=== PATIENT | male | born 1955 ===

== ENCOUNTER 2017-07-15 09:52 | Emergency (ER) | payer MEDICARE ==
[2017-07-15 09:56] VITALS: BP 150/92; O2SAT 98
[2017-07-15 09:57] VITALS: BMI 27.0
[2017-07-15 10:22] VITALS: PULSE 104; RESP 20; TEMP 98
--- NOTE | 2017-07-15 10:29 | ED PDOC ---
HPI: CCC, URI, Sore Throat Time Seen by Provider: 07/15/17 10:10 Chief Complaint (Nursing): Cough, Cold, Congestion Chief Complaint (Provider): Cough History Per: Patient History/Exam Limitations: no limitations Onset/Duration Of Symptoms: Days (x2) Current Symptoms Are (Timing): Still Present Associated Symptoms: Cough, Sputum (green) Additional Complaint(s): Jason Douglass, a 61 year old female, with a past medical history of cerebrovascular accident, hypertension and hypercholesterolemia presents to the ED complaining of cough productive of green sputum associated with body aches x2 days. Denies fever and shortness of breath. PMD: Dr. Carr Past Medical History Reviewed: Historical Data Vital Signs: Last Vital Signs Temp 98.0 F 07/15/17 10:17 Pulse 104 H 07/15/17 10:17 Resp 20 07/15/17 10:17 BP 150/92 H 07/15/17 10:17 Pulse Ox 98 07/15/17 10:33 - Medical History PMH: HTN, Hypercholesterolemia - Family History Family History: States: Unknown Family Hx - Social History Alcohol: None Drugs: Denies - Home Medications Home Medications: Ambulatory Orders Medication Instructions Recorded Azithromycin [Zithromax] 250 mg PO DAILY #6 tab 07/15/17 - Allergies Allergies/Adverse Reactions: Allergies Allergy/AdvReac Type Severity Reaction Status Date / Time No Known Allergies Allergy Verified 07/15/17 10:17 Review of Systems ROS Statement: Except As Marked, All Systems Reviewed And Found Negative Constitutional: Positive for: Other (body aches) Respiratory: Positive for: Cough (productive of green sputum) Physical Exam - Reviewed Nursing Documentation Reviewed: Yes Vital Signs Reviewed: Yes - Physical Exam Appears: Positive for: Non-toxic, No Acute Distress Head Exam: Positive for: ATRAUMATIC, NORMAL INSPECTION, NORMOCEPHALIC Skin: Positive for: Normal Color, Warm, Dry. Negative for: Rash Eye Exam: Positive for: Normal appearance, PERRL. Negative for: Nystagmus ENT: Negative for: Normal ENT Inspection (throat erythematous but no exudates), Nasal Congestion, Tonsillar Exudate, Tonsillar Swelling Neck: Positive for: Normal, Painless ROM, Supple Cardiovascular/Chest: Positive for: Regular Rate, Rhythm, Chest Non Tender. Negative for: Tachycardia Respiratory: Positive for: Normal Breath Sounds. Negative for: Rales, Rhonchi, Wheezing, Respiratory Distress Gastrointestinal/Abdominal: Positive for: Normal Exam, Bowel Sounds, Soft. Negative for: Tenderness, Mass, Guarding, Rebound Back: Positive for: Normal Inspection. Negative for: L CVA Tenderness, R CVA Tenderness Extremity: Positive for: Normal ROM, Tenderness. Negative for: Deformity, Swelling Neurologic/Psych: Positive for: Alert, Oriented, Gait, Other (left sided facial weakness). Negative for: Motor/Sensory Deficits - ECG O2 Sat by Pulse Oximetry: 98 (RA) Pulse Ox Interpretation: Normal Medical Decision Making Medical Decision Makin Initial Impression 61 y/o male presenting with cough Initial Plan: * Chest Xray * Influenza A B * Reevaluation Scribe Attestation Documented by Yumiko Means acting as a scribe for Toro Felipe MD. Provider Attestation All medical record entries made by the Scribe were at my direction and personally dictated by me. I have reviewed the chart and agree that the record accurately reflects my personal performance of the history, physical exam, medical decision making, and the department course for this patient. I have also personally directed, reviewed, and agree with the discharge instructions and disposition. Disposition - Clinical Impression Clinical Impression: Bronchitis - Patient ED Disposition Is Patient to be Admitted: No Counseled Patient/Family Regarding: Studies Performed, Diagnosis, Need For Followup, Rx Given - Disposition Referrals: [facility] [Outside] Disposition: Routine/Home Disposition Time: 10:56 Condition: FAIR Prescriptions: Azithromycin [Zithromax] 250 mg PO DAILY #6 tab Instructions: Acute Bronchitis (ED) Forms: [employer] (Hungarian) Print Language: [place] ISLANDER
--- NOTE | 2017-07-15 10:34 | RAD ---
HISTORY: cough COMPARISON: No prior. TECHNIQUE: Chest PA and lateral FINDINGS: LUNGS: On the lateral view there is a small patchy area of alveolar density identified overlying the lumbar spine region. This is probably noted in the retrocardiac region on the frontal view. Small pneumonia is not excluded. No other infiltrates are seen. PLEURA: No significant pleural effusion identified. No pneumothorax apparent. CARDIOVASCULAR: Normal. OSSEOUS STRUCTURES: No significant abnormalities. VISUALIZED UPPER ABDOMEN: Normal. OTHER FINDINGS: None. IMPRESSION: Possible small alveolar infiltrate posteriorly on the lateral radiograph, probably within the left lower lobe. No CHF.
== END 2017-07-15 11:20 | disposition home or self-care (01) ==
LOC: H.ER 09:52
DX: J40 Bronchitis, not specified as acute or chronic (principal); E78.00 Pure hypercholesterolemia, unspecified; I10 Essential (primary) hypertension

== ENCOUNTER 2017-12-29 11:29 | Emergency (ER) | payer MEDICARE ==
[2017-12-29 11:34] VITALS: BP 167/98; PULSE 59; RESP 17; TEMP 97.8; O2SAT 98; BMI 26.7
--- NOTE | 2017-12-29 12:38 | ED PDOC ---
Upper Extremity Pain/Injury Time Seen by Provider: 12/29/17 11:30 Chief Complaint (Nursing): Upper Extremity Problem/Injury Chief Complaint (Provider): upper ext pain History Per: Patient History/Exam Limitations: no limitations Onset/Duration Of Symptoms: Days (x 2) Current Symptoms Are (Timing): Still Present Additional Complaint(s): 62-year-old male reports he slept on his right side 2 days ago (he slept on the floor on a bad mattress but no trauma) and woke up with pain to his right shoulder and R upper arm and right side of neck. denies weakness or parasthesia , denies headache or dizziness. Patient states that every time he tries to move his shoulder or arm he has pain. Patient has facial droop from stroke over 4 years ago. PMD: No Family Provider Past Medical History Reviewed: Historical Data, Nursing Documentation, Vital Signs Vital Signs: Last Vital Signs Temp 97.8 F 12/29/17 11:34 Pulse 59 L 12/29/17 11:34 Resp 17 12/29/17 11:34 BP 167/98 H 12/29/17 11:34 Pulse Ox 98 12/29/17 11:34 - Medical History PMH: HTN, Hypercholesterolemia Other PMH: Stroke over 40 years with right-sided facial droop - Surgical History Other surgeries: Surgery - Family History Family History: States: Unknown Family Hx - Social History Current smoker - smoking cessation education provided: No Alcohol: None Drugs: Denies, Other (Ex-Drug User) - Home Medications Home Medications: Ambulatory Orders Medication Instructions Recorded Azithromycin [Zithromax] 250 mg PO DAILY #6 tab 07/15/17 Acetaminophen [Tylenol 325mg tab] 650 mg PO Q4H PRN #5 tab 12/29/17 - Allergies Allergies/Adverse Reactions: Allergies Allergy/AdvReac Type Severity Reaction Status Date / Time No Known Allergies Allergy Verified 12/29/17 11:44 Review of Systems ROS Statement: Except As Marked, All Systems Reviewed And Found Negative Constitutional: Positive for: Other Musculoskeletal: Positive for: Neck Pain (Right), Shoulder Pain (Right) Physical Exam - Reviewed Nursing Documentation Reviewed: Yes Vital Signs Reviewed: Yes - Physical Exam Appears: Positive for: Non-toxic Head Exam: Positive for: NORMAL INSPECTION Skin: Positive for: Normal Color (No hematoma, open wound or cellulitis) Eye Exam: Positive for: Normal appearance ENT: Positive for: Normal ENT Inspection Neck: Negative for: Normal ((+) Tenderness to palpation right sternocleidomastoid) Cardiovascular/Chest: Positive for: Regular Rate, Rhythm Respiratory: Positive for: Normal Breath Sounds Gastrointestinal/Abdominal: Positive for: Tenderness (Tenderness to palpation right shoulder) Back: Positive for: Normal Inspection Extremity: Positive for: Normal ROM Neurologic/Psych: Positive for: Alert, Oriented (x 3), Facial Droop - ECG O2 Sat by Pulse Oximetry: 98 Medical Decision Making Medical Decision Making: CC: R shoulder/upper pain, appears musculoskeletal in nature. rule out fracture. Time: 12:32 Plan: - Tylenol 325 mg Tab - Cervical Spine PA and Lateral X-Ray - Right Humerus X-Ray - Right Shoulder X-Ray Time: 13:41 Right Shoulder X-Ray FINDINGS: BONES: No acute fracture. JOINTS: Unremarkable. SOFT TISSUES: Normal. OTHER FINDINGS: None. IMPRESSION: No demonstrated fracture or dislocation. Time: 13:41 Right Humerus X-Ray FINDINGS: BONES: No acute fracture. SOFT TISSUES: Normal. OTHER FINDINGS: None. IMPRESSION: Ms. tai fracture or dislocation. Time: 13:41 Cervical Spine PA and Lateral X-Ray FINDINGS: BONES: Reversal of the normal lordosis. No fracture. Dens Intact. DISC SPACES: Narrowing at C5-6. SOFT TISSUES: Normal. No prevertebral soft tissue swelling. OTHER FINDINGS: None. IMPRESSION: Reversal of the normal lordosis. Focal degenerative changes at C5-6 Patient Update Pt reports feeling better w the tylenol. he is requesting prescription for it. Upon provider evaluation patient is medically stable, and requires no further treatment in the ED at this time. Patient will be discharged with Rx for Tylenol 325 mg Tab. Counseling was provided and all questions were answered regarding diagnosis and need for follow up with PCP within 1-2 days. There is agreement to discharge plan. Return if symptoms persist or worsen. Scribe Attestation: Documented by Siva Cee, acting as a scribe for Sarita Swan MD. Provider Scribe Attestation: All medical record entries made by the Scribe were at my direction and personally dictated by me. I have reviewed the chart and agree that the record accurately reflects my personal performance of the history, physical exam, medical decision making, and the department course for this patient. I have also personally directed, reviewed, and agree with the discharge instructions and disposition. Disposition - Clinical Impression Clinical Impression: Musculoskeletal arm pain - Patient ED Disposition Is Patient to be Admitted: No Counseled Patient/Family Regarding: Studies Performed, Diagnosis, Need For Followup - Disposition Disposition: Routine/Home Disposition Time: 13:30 Condition: IMPROVED Additional Instructions: follow up with your primary doctor in 1-2 days return to the ED With any worsening or concerning symptoms Prescriptions: Acetaminophen [Tylenol 325mg tab] 650 mg PO Q4H PRN #5 tab PRN Reason: Pain, Mild (1-3) Instructions: Muscle and Bone Pain (DC) Forms: [employer] (Maltese)
--- NOTE | 2017-12-29 13:42 | RAD ---
PROCEDURE: Cervical Spine Radiographs. HISTORY: Pain. COMPARISON: None. FINDINGS: BONES: Reversal of the normal lordosis. No fracture. Dens Intact. DISC SPACES: Narrowing at C5-6. SOFT TISSUES: Normal. No prevertebral soft tissue swelling. OTHER FINDINGS: None. IMPRESSION: Reversal of the normal lordosis. Focal degenerative changes at C5-6
--- NOTE | 2017-12-29 13:42 | RAD ---
PROCEDURE: Radiographs of the right humerus. HISTORY: pain COMPARISON: None. FINDINGS: BONES: No acute fracture. SOFT TISSUES: Normal. OTHER FINDINGS: None. IMPRESSION: straighter fracture or dislocation.
--- NOTE | 2017-12-29 13:43 | RAD ---
PROCEDURE: Radiographs of the Right Shoulder HISTORY: pain COMPARISON: No prior. FINDINGS: BONES: No acute fracture. JOINTS: Unremarkable. SOFT TISSUES: Normal. OTHER FINDINGS: None. IMPRESSION: No demonstrated fracture or dislocation.
== END 2017-12-29 16:01 | disposition home or self-care (01) ==
LOC: H.ER 11:29
DX: M79.601 Pain in right arm (principal); E78.00 Pure hypercholesterolemia, unspecified; I10 Essential (primary) hypertension; Z86.73 Personal history of transient ischemic attack (TIA), and cerebral infarction without residual deficits

== ENCOUNTER 2018-06-20 13:25 | Emergency (ER) | payer MEDICARE ==
[2018-06-20 13:25] VITALS: BMI 26.7
[2018-06-20 14:01] VITALS: O2SAT 98
--- NOTE | 2018-06-20 14:26 | ED PDOC ---
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 Pt states that he was walking down stairs last night when his knee buckled and he fell down 3 steps on to his Right side hitting his back with the steps. Denies dizziness, LOC, head trauma, hip or leg pain. Was unable to sleep last night due to pain. Ran out of home medications 1 month ago. Denies MCMULLEN, dizziness currently. Further denies blood in urine. Past Medical History Reviewed: Historical Data, Nursing Documentation, Vital Signs Vital Signs: Last Vital Signs Temp 97.9 F 06/20/18 13:33 Pulse 59 L 06/20/18 14:22 Resp 19 06/20/18 14:22 BP 140/81 06/20/18 14:22 Pulse Ox 98 06/20/18 14:22 - Medical History PMH: HTN, Hypercholesterolemia - Surgical History Surgical History: No Surg Hx - Family History Family History: States: Unknown Family Hx - Social History Current smoker - smoking cessation education provided: No Ex-Smoker (has not smoked in the last 12 months): No - Home Medications Home Medications: Ambulatory Orders Medication Instructions Recorded Azithromycin [Zithromax] 250 mg PO DAILY #6 tab 07/15/17 Acetaminophen [Tylenol 325mg tab] 650 mg PO Q4H PRN #5 tab 12/29/17 Cephalexin [cephalexin] 500 mg PO BID 7 Days cap 06/20/18 Hydrochlorothiazide [Microzide] 12.5 mg PO DAILY 7 Days cap 06/20/18 Ibuprofen [Motrin Tab] 600 mg PO Q6H PRN 5 Days tab 06/20/18 - Allergies Allergies/Adverse Reactions: Allergies Allergy/AdvReac Type Severity Reaction Status Date / Time No Known Allergies Allergy Verified 12/29/17 11:44 Review of Systems ROS Statement: Except As Marked, All Systems Reviewed And Found Negative Musculoskeletal: Positive for: Back Pain (Right sided back/flank pain) Physical Exam - Reviewed Nursing Documentation Reviewed: Yes Vital Signs Reviewed: Yes (BP improved to 140/81) - Physical Exam Appears: Positive for: Uncomfortable Head Exam: Positive for: ATRAUMATIC Skin: Positive for: Normal Color Eye Exam: Positive for: Normal appearance Neck: Positive for: Normal Cardiovascular/Chest: Positive for: Regular Rate, Rhythm Respiratory: Positive for: Normal Breath Sounds Gastrointestinal/Abdominal: Positive for: Normal Exam Male Genital Exam: Positive for: no hernia Back: Positive for: Normal Inspection, Other (Right flank and posterior lower rib cage tenderness on palpation and with movement. no ecchymosis or deformity) Extremity: Positive for: Normal ROM Lymphatic: Positive for: Deferred Neurologic/Psych: Positive for: Alert, Oriented, Facial Droop (Left facial droop) - Laboratory Results Result Diagrams: 06/20/18 14:18 06/20/18 14:18 - ECG O2 Sat by Pulse Oximetry: 98 Medical Decision Making Medical Decision Making: CT chest/abdomen/pelvis w/o contrast Urine deip to evaluate for blood CBC, CMP Toradol 30mg IM x 1 CBC and CMP: wnl Urine dip: Moderate blod, nitrites +, LE small. CT chest/abdomen/pelvis: Cardiomegaly and pulm vascular congestion identified w/o infiltrate or discrete pulmonay mass. No significant lymphadenopathy. No fracture throughout the thorax including B/L ribs. 2. No radiodense urolithiasis, perinephric fluid collection or obstructive uropathy is oz reciated B/L. The B/L ureters appear normal caliber overall. Mildly prominent B/L extrarenal pelves identified. 3. Nonacute colonic diverticular changes as per above. 4. Enlarged prostate gland. 5. Mild to moderate anterior wedge chronic compression fracture T11. No fracture of the pelvic bony skeletal components. Re-evaluated at 16:40: Pain improved after Toradol although still present. SBP 150s/90s. Patient has f/u arranged with PMD in 1 week. Given referral to Dr. Leger if preferred. Discharged with HCTZ 12.5mg PO daily for the next 7 days until f/u with PMD. Disposition - Clinical Impression Clinical Impression: Back pain, UTI (urinary tract infection) - Patient ED Disposition Is Patient to be Admitted: No Counseled Patient/Family Regarding: Studies Performed, Diagnosis, Need For Followup - Disposition Referrals: Julita Leger MD [Staff Provider] - Disposition: Routine/Home Disposition Time: 17:19 Condition: STABLE Additional Instructions: F/u with the doctor with whom you already have an appointment in one week. Take Hydrochlorothiazide 12.5mg PO daily until you follow-up with your primary care doctor. Prescriptions: Cephalexin [cephalexin] 500 mg PO BID 7 Days cap Hydrochlorothiazide [Microzide] 12.5 mg PO DAILY 7 Days cap Ibuprofen [Motrin Tab] 600 mg PO Q6H PRN 5 Days tab PRN Reason: Pain, Moderate (4-7) Instructions: Urinary Tract Infections in Adults Forms: [employer] (Azeri) Print Language: DIVEHI
[2018-06-20 14:47] LABS: BASO % 0.5 % (0.0-2.0); EOS # 0.1 K/uL (0.0-0.7); EOS % 1.5 % (0.0-4.0); HEMOGLOBIN 13.1 g/dL (12.0-18.0); LYMPH # 1.5 K/uL (1.0-4.3); LYMPH % 23.6 % (20.0-40.0); MEAN CELL VOLUME 88.2 fl (80.0-94.0); MEAN CORPUSCULAR HEMOGLOBIN 29.6 pg (27.0-31.0); MEAN CORPUSCULAR HGB CONC 33.5 g/dL (33.0-37.0); MONO # 0.4 K/uL (0.0-0.8); MONO % 6.1 % (0.0-10.0); NEUT # 4.3 K/uL (1.8-7.0); NEUT % 68.3 % (50.0-75.0); NRBC % 0.1 % (0.0-0.0); RBC 4.42 Mil/uL (4.40-5.90); RED CELL DISTRIBUTION WIDTH 13.8 % (11.5-14.5); WHITE BLOOD COUNT 6.3 K/uL (4.8-10.8)
[2018-06-20 14:50] LABS: ALB/GLOB RATIO 1.1 (1.0-2.1); ALT/SGPT 27 U/L (21-72); AST/SGOT 26 U/L (17-59); BLOOD UREA NITROGEN 16 mg/dl (9-20); CALCIUM 8.9 mg/dL (8.4-10.2); GFR NON-AFRICAN AMERICAN > 60
[2018-06-20 15:59] VITALS: RESP 18
--- NOTE | 2018-06-20 16:15 | CT ---
Date of service: 06/20/2018 PROCEDURE: CT Chest, Abdomen and Pelvis without intravenous contrast HISTORY: Right flank and rib pain COMPARISON: None available. TECHNIQUE: Radiation dose: Total exam DLP = 695.37 mGy-cm. This CT exam was performed using one or more of the following dose reduction techniques: Automated exposure control, adjustment of the mA and/or kV according to patient size, and/or use of iterative reconstruction technique. FINDINGS: CT CHEST WITHOUT CONTRAST: LUNGS: No infiltrate or definite mass identified. Central airways appear clear throughout. MEDIASTINUM: Unremarkable. Normal caliber aorta and pulmonary arterial trunk. There is cardiomegaly and pulmonary vascular engorgement which may indicate CHF. Clinically correlate further. Azygos vein also appears prominent which may indicate CHF as well. LYMPH NODES: Unremarkable. PLEURA: Unremarkable. No pneumothorax. No pleural fluid. BONES: Unremarkable. OTHER FINDINGS: None. CT ABDOMEN AND PELVIS: LIVER: Unremarkable. No gross lesion or ductal dilatation. GALLBLADDER AND BILE DUCTS: Unremarkable. PANCREAS: Unremarkable. No gross lesion or ductal dilatation. SPLEEN: Unremarkable. ADRENALS: Unremarkable. No mass. KIDNEYS AND URETERS: No radiodense urolithiasis identified bilaterally. Mildly prominent bilateral extrarenal pelves are identified without hydronephrosis. No prominent perinephric reaction bilaterally. Trace nonspecific streaky perinephric changes may be senescent but ultimately nonspecific. VASCULATURE: No aortic atherosclerotic calcification or mural plaque present. Unremarkable. No aortic aneurysm. BOWEL: Nonacute left colonic diverticular change are identified with limited diverticula at the hepatic flexure. Moderate GB detail scattered throughout the large bowel. The stomach is collapsed not well evaluated. Evaluation of the gastrointestinal tract is limited due to the lack of oral contrast administration. No CT evidence of bowel obstruction APPENDIX: Normal appendix. PERITONEUM: Unremarkable. No free fluid. No free air. LYMPH NODES: Unremarkable. No enlarged lymph nodes. BLADDER: Unremarkable. REPRODUCTIVE: Enlarged prostate gland identified. BONES: An anterior wedge compression fracture of T11 is appreciated which is [id number] severity unchanged compared prior chest radiograph 07/15/2017. No destructive bony lesion identified. OTHER FINDINGS: None. IMPRESSION: 1. Cardiomegaly and pulmonary vascular congestion identified without infiltrate or discrete pulmonary mass. No significant lymphadenopathy. No fracture throughout the thorax including bilateral ribs. 2. No radiodense urolithiasis, perinephric fluid collection or obstructive uropathy is appreciate bilaterally. The bilateral ureters appear normal caliber overall. Mildly prominent bilateral extrarenal pelves identified. 3. Nonacute colonic diverticular changes as per above. 4. Enlarged prostate gland. 5. [id number] anterior wedge chronic compression fracture T11. No fracture of the pelvic bony skeletal components.
[2018-06-20 17:15] LABS: URINE BILIRUBIN NEGATIVE (NEGATIVE); URINE BLOOD SMALL (NEGATIVE); URINE CLARITY CLEAR (Clear); URINE COLOR STRAW (YELLOW); URINE GLUCOSE (UA) NEG (Normal); URINE LEUKOCYTE ESTERASE SMALL Leu/uL (Negative); URINE PROTEIN NEGATIVE (NEGATIVE); URINE UROBILINOGEN 0.2-1.0 mg/dL (0.2-1.0)
[2018-06-20 17:17] VITALS: BP 140/78; PULSE 57; TEMP 97.7
[2018-06-20 17:18] LABS: URINE BACTERIA MOD (<OCC)
[2018-06-20 17:19] LABS: SQUAMOUS EPITHIAL 5 /hpf (0-5)
== END 2018-06-20 17:17 | disposition home or self-care (01) ==
LOC: H.ER 13:25
DX: M54.9 Dorsalgia, unspecified (principal); N39.0 Urinary tract infection, site not specified; Z87.820 Personal history of traumatic brain injury; Z87.891 Personal history of nicotine dependence; I10 Essential (primary) hypertension; N40.0 Benign prostatic hyperplasia without lower urinary tract symptoms; W10.9XXA Fall (on) (from) unspecified stairs and steps, initial encounter
CPT/HCPCS: 71250; 74176; 80053; 81003; 85025; 87086; 96372; 99284; J1885